=== PATIENT | female | born 1960 | race Caucasian/White ===

== ENCOUNTER 2019-08-10 16:39 | Inpatient (IN) | payer OTHER ==
[~2019-08-10] VITALS: Ht 165.1 cm; Wt 49.3 kg
[2019-08-10 16:40] VITALS: BP 135/87
[2019-08-10 17:31] LABS: URINE BILIRUBIN 1+ (Negative); URINE BLOOD NEGATIVE (Negative); URINE GLUCOSE-RANDOM* NEGATIVE (Negative); URINE KETONES TRACE (Negative); URINE NITRITE-REFLEX NEGATIVE (Negative); URINE PROTEIN (DIPSTICK) TRACE (Negative); URINE SPECIFIC GRAVITY >= 1.030 (1.005-1.035); URINE UROBILINOGEN 0.2 E.U./dl (0.2-1.0)
[2019-08-10 17:32] LABS: URINE LEUKOCYTES-REFLEX 3+ (Negative)
[2019-08-10 17:33] LABS: URINE CLARITY CLOUDY; URINE COLOR AMBER
[2019-08-10 17:35] LABS: SQUAMOUS >10 Many /LPF (0-3); URINE WBC-REFLEX 6-15 Few /HPF (0-5)
[2019-08-10 17:36] LABS: BACTERIA-REFLEX None Seen /HPF (None Seen); CRYSTALS None Seen /LPF (None Seen); URINE RBC 0-2 Rare /HPF (0-2)
[2019-08-10 20:03] VITALS: BP 143/93
[2019-08-11 02:00] VITALS: BP 148/98
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
[2019-08-11 06:19] LABS: HEMOGLOBIN 12.8 gm/dL (12.0-15.0); MCH 39.4 pg (26.0-34.0); MCHC 33.7 g/dL (28.0-37.0); MCV 116.8 fL (80.0-100.0); RBC 3.25 mil/uL (4.20-5.00); RDW 14.2 % (10.5-14.5); WBC 6.5 thou/uL (4.0-11.0)
[2019-08-11 06:26] LABS: CALCIUM 9.6 mg/dL (8.5-10.1); CREATININE 0.6 mg/dL (0.6-1.0); POTASSIUM 3.5 mmol/L (3.5-5.1)
--- NOTE | 2019-08-11 08:51 | NUR ---
BED IN LOW POSITION, 3 BED RAILS UP FOR MOBILITY, BED ALARM SET. BED ALARM SOUNDED @ 0200, STAFF RESPONDED AND PT NOTED TO BE ON THE FLOOR NEXT TO THE BED, KNEELING. VS TAKEN AND ASSESSMENT NOTED TO MOVE ALL EXTREMITIES WITHIN NORMAL LIMITS. PT DENIES TENDERNESS OR PAIN. NO CUTS OR BRUISES NOTED. OLEGARIO PARK ASSESSMENT RN ADVISED OF NON INJURY FALL. FAMILY SARINA ADVISED OF NON INJURY FALL @ 0530. FOLLOW UP VS STABLE.
[2019-08-11 08:54] VITALS: BP 113/76
--- NOTE | 2019-08-11 10:54 | EKG ---
[facility] [address] ELECTROCARDIOGRAM REPORT Name: PANFILO OLSONBETH Room #: [facility] Department ADM IN M.R.#: [id number] Admission: 08/10/19 Attend Phys: Curtis Anderson DO Discharge: Date of : 60 Report #: [id number] THIS REPORT FOR: cc: Jonathan Engel MD, Paul L. MD Lundgren,Kurt Post MD [facility] ~ THIS REPORT FOR: //name// [facility] ED Test Date: 2019-08-10 Test Time: 18:01:59 Pat Name: KOSTAS OLSON [facility] Gender: F Solution Professional: claudia : 1960 Requested By: Erika Zhu Order Number: [id number] MD: Kurt Gongora Measurements Intervals [place] Rate: 75 P: 53 MT: 143 QRS: 64 QRSD: 78 T: 55 QT: 383 QTc: 428 Interpretive Statements Sinus rhythm Normal tracing Compared to ECG 08/27/1998 10:59:00 No significant change was found Electronically Signed On 08-11-2019 10:52:58 CDT by Kurt Gongora [email or web address] <ELECTRONICALLY SIGNED> By: Kurt Gongora MD, [facility] 08/11/19 1052 180 180 Kurt Gongora MD, [facility] /EPI
--- NOTE | 2019-08-11 14:02 | NUR ---
Sitting in day room in wheelchair. Drowsy but awakens to stimuli. Confused speech, no response to orientation questions. No speech/behavior suggestive of SI/HI. Able to eat some of breakfast independently. When laid in bed for assessment she did become resistive and momentarily combative but relaxed when left alone. Breath sounds clear t/o. Reg HR auscultated. Color pale pink with brisk capillary refill and palpable peripheral pulses, extremities cool to touch. Brief dry. Active bowel sounds over soft, flat abdomen. Requires 2 staff to transfer from/to . No mouth sores/lesions visualized. Dr. Wylie here assessing pt, clarified orders. Prednisone dced per order. Jamila Chanel SW completed 96 hr hold paperwork after speaking with daughter since pt did not have a DPOA. 1400 Sitting in dining room without s/o distress.
--- NOTE | 2019-08-11 14:25 | NUR ---
Patient transferred from [facility] due to altered mental state. She does not have a DPOA. SW spoke to her daughter who has been in contact with an assistant county attorney to file for guardianship. Daughter requested 1:1 due to patient falling at previous hospital and requiring 1:1 there. LOKI informed ARPIT Wolf of [facility]'s request. LOKI completed involuntary 96hr hold packet and faxed to Wind Tunnel Technician, Vic Paz and the [address] LOKI attempted to notify patient and read her rights but she was unable to understand. Discussed case with medical team, Dr. Mancini, ISHAAN Diamond, and ARPIT Wolf.
[2019-08-11] MEDS ORDERED: VIVELLE-DOT1 EAC3 TOP (17:01)
[2019-08-11 17:46] LABS: FOLIC ACID 11.1 ng/mL (8.6-58.9)
--- NOTE | 2019-08-12 02:41 | NUR ---
PATIENT ALERT AND ORIENTED TO SELF. UNCOOPERATIVE WITH CARE, REFUSED MEDICATIONS AND TWO PERSON ASSIST WITH RESISTANCE FROM WHEELCHAIR TO RECLINER. PATIENT HAS NOT SLEPT FROM SHIFT CHANGE TO TIME OF NOTE. PERIODS OF BABBLING SPEECH. REMAINS IN DAY ROOM. NO S/S OF PAIN. WILL MONITOR.
[2019-08-12 08:21] VITALS: BP 133/95
--- NOTE | 2019-08-12 09:26 | NUR ---
Assumed care at 0700. At 0705 removed lap marbella and sat down on the floor. No injury/no c/o pain. Extremely confused, not making sense. Pulled off name band and it was replaced. Transferred to a wheelchair. Did not eat much breakfast, given bottle of Ensure for nourishment, sipping it. Would not take pills whole, meds crushed and put in pudding which she declined, will retry meds a little later. Took off yellow socks and nurse replaced socks on her feet. She is oriented only to name.
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
--- NOTE | 2019-08-12 17:43 | NUR ---
FREELANCE DISPLAYER Lobo Powers gave order for now IM Geodon 10 mg given 1714 for combative, out of control behavior. Has not slowed down since IM despite room light darkened, staff not engaging pt. in conversation unless absolute necessary for redirection. Staff is reuired to keep her in bed as she tries to get out or is kicking the bottom siderail.
[2019-08-12 19:50] VITALS: BP 159/104
--- NOTE | 2019-08-12 23:09 | NUR ---
ASSUMED CARE ON 08/12/19 @ 19:30, IN W/C IN DAY ROOM. DAUGHTER SARINA CALLED ON THE PHONE, SPOKE TO NURSE AND TO PATIENT. TOOK MEDS CRUSHED IN ICE CREAM. C/O THE COLD HURTING HER MOUTH. SPEACH IS CONFUSED AND MUFFLED. KICKS AND GRABS AT STAFF WITH CARE. ORIENTED TO SELF ONLY. X2 STAFF ASSISTANCE TO TRANSFER FROM W/C TO BED. BED IN LOW POSITION, 3 BEDRAILS UP, BED ALARM SET. WILL CONTINUE TO MONITOR Q 12 MINUTES FOR PATIENT SAFETY.
--- NOTE | 2019-08-13 06:35 | NUR ---
PROVIDED INCONTINENT CARE AND DRESSED. TRANSFERRED X 2 TO THE W/ AND TAKEN TO THE DAY ROOM. SLEPT 8.8 HOURS OVERNIGHT.
--- NOTE | 2019-08-13 09:30 | NUR ---
Assumed care at 0700. Speech is a mxture of mumbles and more understandable words. She is oriented to person. Pt. c/o right neck under jaw bone extreme pain. She is doing better from the standpoint of eating on her own and compliance with medications. Her rate of speech is slower. Initially she declined to work with PT, giving no reason. Staff is gradually working on getting matted hair untangled.
--- NOTE | 2019-08-13 14:56 | NUR ---
LOKI and Dr. Anderson contacted pt's daughter Lissett who gave hx on pt. She explained that pt has been 8 years and the family does not want him knowing anything about pt. LOKI explained that he is on [facility] documents as "emergency contact." Lissett said that must be old. LOKI explained to Lissett that at this time there is nothing that the hospital can do if pt wants to give out info. Lissett explained that she is currently obtaining guardianship of pt with the help of one of her uncles. LOKI asked her to keep SW update and discussed that DPOA or guardianship is needed for placement if that is the plan. LOKI advised asking for emergency guardianship due to COVID-19 because SW cannot keep pt after she no longer meets criteria for the unit. Lissett said she understood and will work quickly on this case. SW team will continue to follow pt during her stay on this unit.
--- NOTE | 2019-08-13 19:01 | NUR ---
Patient was seen by lurer today whe reported patient did not have much to say. After lunch she has held a towel or another yellow shirt over her head. She is experiencing AH/VH/TH. She is very frightened of the hallucinations. She is delusional of staff thinking some are people she knows and calling them by another name. Writes spoke with daughter on the phone. dtr. will talk with patient any time of day or night. She declined evening 1800 dose of Nystatin.
--- NOTE | 2019-08-14 01:48 | NUR ---
Assumed care on 08/13/19 @ 1900, seated in w/c at a table with lap marbella around waist, wearing yellow T-shirt and yellow socks. Oriented x1 to name only, whispers and mumbles only. Confused speach noted. Noted to be watching movement in the room where none is observed by others, then cowers under a sheet, shirt or behind hands, covering face. Speaks to unseen others, shouting out the names of people who are not present. Refused VS, cooperated with assessment, HRRR, Lungs auscultated to all nogueira, ABD sounds auscultated N x 4 Q. Hits and kicks at staff when straightening her up in the w/c. Refused meds whole, provided crushed in pudding, which she also refused. Nystatin swish and spit provided with green oral spongette, which she accepted and brushed by herself over her mouth tissues and teeth, then spit into a cup. In bed at this writing, curled into a position, eyes closed, respirations even and unlabored. Bed in low position, bed alarm set, will continue to monitor q 12 minutes for patient safety.
[2019-08-14 05:32] VITALS: BP 159/104
[2019-08-14 09:27] LABS: APTT 27.3 Seconds (24.5-32.8); INR 1.1; PROTIME 10.9 Seconds (9.3-11.4)
[2019-08-14 12:00] VITALS: BP 107/60
[2019-08-14 12:03] LABS: CSF CLARITY CLEAR; CSF COLOR COLORLESS
[2019-08-14 12:04] LABS: CSF GLUCOSE 63 mg/dL (40-70); CSF PROTEIN 54 mg/dL (15-45)
--- NOTE | 2019-08-14 12:49 | NUR ---
0745 Lying in recliner. When initially approaching pt she pushes away and holds her face or a wash cloth to her face. Alert and orientated X3. States her goal for the day is to give alot of money to [facility]. Speaks in a quiet voice. Calm when holding her hand and explaining procedures. Kicks and pushes back with stimulation. NPO per verbal order from Dr. Anderson. Took meds with 30 ml of H2O with encouragement. Denies SI/HI. Breath sounds clear t/o. Reg HR auscultated. Color pink with brisk capillary refill and palpable peripheral pulses. No edema. Brief dry. Active bowel sounds over soft, flat abdomen. Dr. Anderson aware of temperature. 1000 To Interventional Radiology for LP per order. Attempted IV X 2 without success. Radiology state they will place IV. 1200 Back from Radiology. No s/o distress. T 99.9. HR 100. Took Nystatin with encouragement.
[2019-08-14 13:00] VITALS: BP 102/70
[2019-08-14 13:04] LABS: CSF RBC 0 /mm3; CSF WBC 1 /mm3 (0-10)
[2019-08-14 14:07] LABS: HEMOGLOBIN 11.4 gm/dL (12.0-15.0); MCH 39.5 pg (26.0-34.0); MCHC 33.5 g/dL (28.0-37.0); MCV 117.7 fL (80.0-100.0); RBC 2.89 mil/uL (4.20-5.00); RDW 14.5 % (10.5-14.5); WBC 9.9 thou/uL (4.0-11.0)
[2019-08-14 14:17] LABS: ALBUMIN 3.3 g/dL (3.4-5.0); CALCIUM 9.4 mg/dL (8.5-10.1); CREATININE 0.7 mg/dL (0.6-1.0); MAGNESIUM 1.6 mg/dL (1.8-2.4); POTASSIUM 3.6 mmol/L (3.5-5.1); TOTAL BILIRUBIN 0.5 mg/dL (<0.1-1.0); TOTAL PROTEIN 6.8 g/dL (6.4-8.2)
[2019-08-14] MEDS ORDERED: HALOPERIDOL 1 MG1 MG PO (14:53)
[2019-08-14] MEDS ORDERED: PANTOPRAZOLE SO40 M1 PO (14:53)
[2019-08-14] MEDS ORDERED: VITAMIN D325 MCG PO (14:54)
[2019-08-14] MEDS ORDERED: SYNTHROID125 MC1 PO (14:54)
[2019-08-14] MEDS ORDERED: PRENATAL PO (14:54)
[2019-08-14] MEDS ORDERED: VITAMIN B-1100 M2 PO (14:54)
[2019-08-14 15:18] LABS: URINE BILIRUBIN NEGATIVE (Negative); URINE BLOOD NEGATIVE (Negative); URINE CLARITY CLEAR; URINE COLOR YELLOW; URINE GLUCOSE-RANDOM* NEGATIVE (Negative); URINE KETONES TRACE (Negative); URINE LEUKOCYTES-REFLEX NEGATIVE (Negative); URINE NITRITE-REFLEX NEGATIVE (Negative); URINE PROTEIN (DIPSTICK) TRACE (Negative); URINE UROBILINOGEN 0.2 E.U./dl (0.2-1.0)
[2019-08-14 16:36] LABS: % SATURATION 24 % (20-39); IRON 51 ug/dL (50-170); TIBC 212 ug/dL (250-450)
[2019-08-16 11:08] LABS: CSF IgG 2.3 mg/dL (0.0-8.6)
[2019-08-16 14:08] LABS: CSF VDRL Non Reactive (Non Rea:<1:1)
--- NOTE | 2019-08-16 23:04 | D ---
[facility] [place] [address] DISCHARGE SUMMARY Name: KOSTAS OLSON Room #: 520B-B [facility] IN M.R.#: [id number] Admission: 08/10/19 Attend Phys: Curtis Anderson DO Discharge: 08/14/19 Date of : 60 Report #: [id number] THIS REPORT FOR: cc: Jonathan Engel MD, Paul L. MD Kerstein, Andrew H. DO ~ THIS REPORT FOR: //name// CC: Curtis Engel DATE OF SERVICE: 08/14/2019 INPATIENT PSYCHIATRIC DISCHARGE SUMMARY ATTENDING PHYSICIAN: Curtis Anderosn DO STAFFING MANAGER AT THE TIME OF DISCHARGE: Arash Matos MD DISCHARGE DIAGNOSES: Delirium secondary to general medical condition, namely combination of alcohol withdrawal, dehydration, tachycardia, possible COVID-19 infection. Could not exclude an underlying neurodegenerative disorder at this point. Additional medical problems are recent urinary tract infection, which was treated, sick euthyroid. DISCHARGE MEDICATIONS: I have recommended the patient be on 2 mg 3 times a day of haloperidol to assist with delirium management. Otherwise, her medications will be per the Hospitalist Service. She is discharged to the [facility] medical floor for COVID-19 rule out, IV fluids, so forth. diet: per hospitalist ACTIVITY: As tolerated. The patient is a fall risk and was not ambulatory at the time of discharge. REASON FOR ADMISSION: Back in the , the patient was in hospital transfer from [facility] for Geriatric Psychiatry evaluation. She had been admitted for "altered mental state" background on 08/02/2019 to [facility]. They did some of the neuro workup including an MRI; however, other than possibility of Wernicke-Korsakoff syndrome and prolonged delirium and coming to no specific conclusion. HOSPITAL COURSE: The patient was admitted to Geriatric Psychiatry Unit. The patient had poor level of function since time of admission. Spoke to her [facility] [address] [place] [address] DISCHARGE SUMMARY Name: KOSTAS OLSON Room #: 520B-B [facility] IN M.R.#: [id number] Admission: 08/10/19 Attend Phys: Curtis Anderson, Discharge: 08/14/19 Date of : 60 Report #: [id number] daughterLissett on the phone. Regarding workup, I made a decision on the morning of 08/14/2019 to have a lumbar puncture undertaken and the patient tolerated this, but when she came back from Interventional Radiology was showing poor urine output, tachycardia, O2 sat 92% and there was concern of the COVID-19 infection being an issue. So, Dr. Matos requested to take her medical. Discharge day progress note was done yesterday. PROGNOSIS: For this patient is guarded and will depend if a reversible cause for her diminished mentation is found essentially. LABORATORY DATA: Laboratories as of the were limited as most to be done at [facility]. INR was 1.1, PT 10.9, APTT 27.3. Urinalysis grossly normal with some trace protein, trace ketones, some leukocytes and some squamous epithelial cells. CSF showed colorless white blood cell count; red blood cell count is 0. Glucose 63, total protein 54. Serum IgG 707. Serum albumin 4.0. I did order a thyroid peroxidase antibodies, it came back high at 338. <ELECTRONICALLY SIGNED> By: Curtis Anderson DO 08/16/19 2304 1626 1703 Curtis Anderson DO /nt
[2019-08-17 10:28] LABS: HSV PCR SOURCE CSF
[2019-08-17 15:08] LABS: HSV 1 DNA Negative (Negative); HSV 2 DNA Negative (Negative)
== END 2019-08-14 15:45 | disposition short-term general hospital (02) | DRG 885 ==
LOC: ER 16:39 → EROBS 17:59 → SBH 17:59
PROVIDERS: Internal Medicine; Physician Assistant; Psychiatry & Neurology Neurology; Radiology Diagnostic Radiology; ADMIT Psychiatry & Neurology Psychiatry
PROC: B01B1ZZ Fluoroscopy of Spinal Cord using Low Osmolar Contrast (ICD-10-PCS; principal; 2019-08-14)
PROC: 009U3ZX Drainage of Spinal Canal, Percutaneous Approach, Diagnostic (ICD-10-PCS; principal; 2019-08-14)
DX: F29 Unspecified psychosis not due to a substance or known physiological condition (principal); N39.0 Urinary tract infection, site not specified; R41.0 Disorientation, unspecified; E86.0 Dehydration; R00.0 Tachycardia, unspecified; Z88.6 Allergy status to analgesic agent; Z88.8 Allergy status to other drugs, medicaments and biological substances; G25.81 Restless legs syndrome
CPT/HCPCS: 10880

== ENCOUNTER 2019-08-14 16:11 | Inpatient (IN) | payer OTHER ==
[~2019-08-14 16:11] MED LIST: HALOPERIDOL 1 MG1 MG PO; PANTOPRAZOLE SO40 M1 PO; PRENATAL PO; SYNTHROID125 MC1 PO; VITAMIN B-1100 M2 PO; VITAMIN D325 MCG PO; VIVELLE-DOT1 EAC3 TOP
[2019-08-14 17:09] VITALS: BP 122/55
[2019-08-14 18:10] LABS: ALBUMIN 3.5 g/dL (3.4-5.0); TOTAL PROTEIN 6.4 g/dL (6.4-8.2)
[2019-08-14 18:50] LABS: TSH 4.681 uIU/mL (0.358-3.740)
[2019-08-14 19:55] VITALS: BP 145/96
[2019-08-15 02:30] VITALS: BP 123/83
[2019-08-15 05:56] LABS: HEMATOCRIT 34.8 % (37.0-47.0); HEMOGLOBIN 11.5 gm/dL (12.0-15.0); MCH 38.5 pg (26.0-34.0); MCHC 32.9 g/dL (28.0-37.0); MCV 117.1 fL (80.0-100.0); RBC 2.97 mil/uL (4.20-5.00); RDW 14.1 % (10.5-14.5); WBC 7.3 thou/uL (4.0-11.0)
[2019-08-15 06:06] LABS: CALCIUM 9.3 mg/dL (8.5-10.1); CREATININE 0.6 mg/dL (0.6-1.0); MAGNESIUM 1.6 mg/dL (1.8-2.4)
[2019-08-15 06:09] LABS: POTASSIUM 2.6 mmol/L (3.5-5.1)
[2019-08-15 08:19] VITALS: BP 145/90
[2019-08-15 16:11] VITALS: BP 112/76
[2019-08-15 19:46] VITALS: BP 121/76
[2019-08-16 04:10] VITALS: BP 155/73
[2019-08-16 05:55] LABS: HEMATOCRIT 34.3 % (37.0-47.0); HEMOGLOBIN 11.3 gm/dL (12.0-15.0); MCH 38.6 pg (26.0-34.0); MCHC 32.9 g/dL (28.0-37.0); MCV 117.4 fL (80.0-100.0); RBC 2.92 mil/uL (4.20-5.00); RDW 14.4 % (10.5-14.5); WBC 8.5 thou/uL (4.0-11.0)
[2019-08-16 06:01] LABS: CALCIUM 9.3 mg/dL (8.5-10.1); CREATININE 0.6 mg/dL (0.6-1.0); MAGNESIUM 1.8 mg/dL (1.8-2.4); POTASSIUM 3.1 mmol/L (3.5-5.1)
[2019-08-16 07:34] VITALS: BP 120/73
[2019-08-16 13:07] VITALS: BP 165/89
[2019-08-16 14:00] VITALS: BP 155/68
[2019-08-16 19:08] VITALS: BP 111/58
[2019-08-17 03:37] VITALS: BP 102/58
[2019-08-17 07:46] VITALS: BP 106/67
[2019-08-17 08:12] LABS: HEMATOCRIT 32.5 % (37.0-47.0); HEMOGLOBIN 10.9 gm/dL (12.0-15.0); MCH 39.3 pg (26.0-34.0); MCHC 33.6 g/dL (28.0-37.0); MCV 117.2 fL (80.0-100.0); RBC 2.77 mil/uL (4.20-5.00); RDW 14.1 % (10.5-14.5); WBC 6.8 thou/uL (4.0-11.0)
[2019-08-17 08:43] LABS: CALCIUM 9.2 mg/dL (8.5-10.1); CREATININE 0.7 mg/dL (0.6-1.0); MAGNESIUM 1.7 mg/dL (1.8-2.4); POTASSIUM 3.5 mmol/L (3.5-5.1)
[2019-08-17 09:24] LABS: URINE BILIRUBIN NEGATIVE (Negative); URINE BLOOD TRACE (Negative); URINE CLARITY CLOUDY; URINE COLOR YELLOW; URINE GLUCOSE-RANDOM* NEGATIVE (Negative); URINE KETONES NEGATIVE (Negative); URINE LEUKOCYTES-REFLEX NEGATIVE (Negative); URINE NITRITE-REFLEX NEGATIVE (Negative); URINE PROTEIN (DIPSTICK) NEGATIVE (Negative); URINE SPECIFIC GRAVITY >= 1.030 (1.005-1.035); URINE UROBILINOGEN 0.2 E.U./dl (0.2-1.0)
[2019-08-17 09:47] LABS: AMORPHOUS URATES Many /LPF (None Seen); BACTERIA-REFLEX 1-9 Few /HPF (None Seen); CASTS None Seen /LPF (None Seen); SQUAMOUS None Seen /LPF (0-3); URINE RBC 0-2 Rare /HPF (0-2); URINE WBC-REFLEX None Seen /HPF (0-5)
--- NOTE | 2019-08-17 13:32 | EEG ---
[facility] [place] [address] ELECTROENCEPHALOGRAM Name: KOSTAS OLSON Room #: 444-P ADM IN M.R.#: [id number] Admission: 08/14/19 Attend Phys: Arash Matos MD Discharge: Date of : 60 Report #: [id number] THIS REPORT FOR: //name// CC: Arash Castillo [place] DATE OF SERVICE: 08/16/2019 This patient's EEG was done to evaluate for altered mental status. The whole EEG is masked by a lot of artifact and virtually uninterpretable. Photic stimulation is unremarkable. The patient became drowsy and during that portion of the EEG, some slowing was noticed on both sides, but background activity appeared to be about 8 Hz and 30 microvolt. IMPRESSION: This patient's EEG is masked by a lot of artifact and is virtually uninterpretable. However, I did not see any active epileptiform activity. It does appear to be intermixed with theta range slowing on both sides. That is a nonspecific finding, which can occur with dementia, encephalopathy, effect of psychotropic medication, etc. Clinical correlation is recommended. <ELECTRONICALLY SIGNED> By: Vamshi Snowden MD 08/17/19 1332 1531 1538 Vamshi Snowden MD /nt
[2019-08-17 16:05] VITALS: BP 147/92
[2019-08-17 19:50] VITALS: BP 112/31
[2019-08-17 21:17] VITALS: BP 112/31
[2019-08-18 06:19] LABS: HEMATOCRIT 32.1 % (37.0-47.0); MCH 39.6 pg (26.0-34.0); MCHC 34.2 g/dL (28.0-37.0); MCV 115.9 fL (80.0-100.0); RBC 2.77 mil/uL (4.20-5.00); RDW 14.1 % (10.5-14.5); WBC 7.9 thou/uL (4.0-11.0)
[2019-08-18 06:31] LABS: CALCIUM 9.1 mg/dL (8.5-10.1); CREATININE 0.6 mg/dL (0.6-1.0); MAGNESIUM 1.8 mg/dL (1.8-2.4)
[2019-08-18 06:41] LABS: PHOSPHORUS 3.5 mg/dL (2.5-4.9)
[2019-08-18 10:09] VITALS: BP 122/85
[2019-08-18 10:14] VITALS: BP 122/85
[2019-08-18 11:35] VITALS: BP 140/93
[2019-08-18 19:36] VITALS: BP 140/90
[2019-08-18 23:23] VITALS: BP 140/90
[2019-08-19 03:44] LABS: HEMATOCRIT 30.6 % (37.0-47.0); HEMOGLOBIN 10.4 gm/dL (12.0-15.0); MCH 39.2 pg (26.0-34.0); MCHC 34.1 g/dL (28.0-37.0); RBC 2.66 mil/uL (4.20-5.00); RDW 14.2 % (10.5-14.5); WBC 10.8 thou/uL (4.0-11.0)
[2019-08-19 03:47] LABS: CREATININE 0.6 mg/dL (0.6-1.0); POTASSIUM 3.6 mmol/L (3.5-5.1)
[2019-08-19 04:17] VITALS: BP 125/80
[2019-08-19 07:40] VITALS: BP 100/70
[2019-08-19 08:00] VITALS: BP 100/70
[2019-08-19 12:00] VITALS: BP 135/86
[2019-08-19 16:00] VITALS: BP 132/76
[2019-08-19 19:47] VITALS: BP 93/55
[2019-08-20 03:40] VITALS: BP 125/90
[2019-08-20 05:18] LABS: CALCIUM 9.4 mg/dL (8.5-10.1); CREATININE 0.6 mg/dL (0.6-1.0); MAGNESIUM 1.9 mg/dL (1.8-2.4); PHOSPHORUS 3.3 mg/dL (2.5-4.9); POTASSIUM 3.9 mmol/L (3.5-5.1)
[2019-08-20 07:08] VITALS: BP 114/69
--- NOTE | 2019-08-20 07:56 | EKG ---
[facility] [place] [address] ELECTROCARDIOGRAM REPORT Name: KOSTAS OLSON Room #: 204-P ADM IN M.R.#: [id number] Admission: 08/14/19 Attend Phys: Arash Matos MD Discharge: Date of : 60 Report #: [id number] THIS REPORT FOR: cc: Jonathan Engel MD, Paul L. MD Lundgren,Kurt Post MD [facility] ~ THIS REPORT FOR: //name// [facility] Test Date: 2019-08-19 Test Time: 11:52:01 Pat Name: KOSTAS OLSON Department: Room: 204 P Gender: F Railroad Crane Operator: : 1960 Requested By: Curtis Anderson Order Number: [id number] MD: Kurt Gongora Measurements Intervals [place] Rate: 95 P: 56 [place]: 134 QRS: 38 QRSD: 77 T: 21 QT: 342 QTc: 430 Interpretive Statements Sinus rhythm Normal tracing Compared to ECG 08/10/2019 18:01:59 No significant change was found Electronically Signed On 08-20-2019 7:55:12 CDT by Kurt Gongora [email or web address] <ELECTRONICALLY SIGNED> By: Kurt Gongora MD, [facility] 08/20/19 0755 1152 1152 Kurt Gongora MD, [facility] /EPI
== END 2019-08-20 14:58 | DRG 640 ==
LOC: 4S 16:11 → 3W 16:11 → 4S 08-15 19:16 → 2N 08-18 11:22
PROVIDERS: Hospitalist; Nurse Practitioner Family; ADMIT Internal Medicine
DX: E51.2 Wernicke's encephalopathy (principal); G93.41 Metabolic encephalopathy; R65.10 Systemic inflammatory response syndrome (SIRS) of non-infectious origin without acute organ dysfunction; E06.3 Autoimmune thyroiditis; F10.10 Alcohol abuse, uncomplicated; E07.81 Sick-euthyroid syndrome; Z88.5 Allergy status to narcotic agent; Z03.818 Encounter for observation for suspected exposure to other biological agents ruled out; Z88.8 Allergy status to other drugs, medicaments and biological substances
CPT/HCPCS: 10081; 10102; 10779; 10879

== ENCOUNTER 2019-08-20 15:19 | Inpatient (IN) | payer OTHER ==
[~2019-08-20] VITALS: Ht 152.4 cm; Wt 49.1 kg
[2019-08-20 16:05] VITALS: BP 104/45
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
[2019-08-20 19:43] VITALS: BP 184/85
[2019-08-20 20:08] VITALS: BP 184/85
[2019-08-20 22:00] VITALS: BP 102/55
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
[2019-08-21 09:00] VITALS: BP 112/70
[2019-08-21 09:45] VITALS: BP 112/70
--- NOTE | 2019-08-21 10:08 | NUR ---
ASSUMED CARE AT 0700 THIS MORNING. PT. UP TO A W/C AND OUT TO THE DINING ROOM. SHE WAS EATING BREAKFAST ON HER OWN. SHE NEEDED SOME ENCOURAGEMENT TO EAT AND TO TAKE HER MEDICATIONS. SHE DID BOTH WITH ONLY A BIT OF ENCOURAGEMENT. NO NEW PROBLEMS NOTED OR VOICED AT THIS TIME. HER SPEECH IS GARBLED AND UNINTELLIGABLE. ONLY A FEW ISOLATED WORDS ARE UNDERSTOOD.
--- NOTE | 2019-08-21 11:07 | NUR ---
LOKI and Dr. Andersno spoke with Micheline's patent attorney Levi Melgar who said they have not filed the guardianship petition, but once done will be asking for a [place] hearing. LOKI emailed Micheline asking if she has been able to identify placement options, and how LOKI can assist. LOKI team will continue to follow pt during her stay on this unit.
--- NOTE | 2019-08-21 11:39 | H ---
[facility] [place] [address] HISTORY AND PHYSICAL Name: KOSTAS OLSON Room #: 519B-B ADM IN M.R.#: [id number] Admission: 08/20/19 Attend Phys: Curtis Anderson DO Discharge: Date of : 60 Report #: [id number] THIS REPORT FOR: cc: Jonathan Engel MD,Curtis Carty MD, DO ~ CC: Curtis Engel DATE OF SERVICE: 08/20/2019 INPATIENT PSYCHIATRIC EVALUATION Of note, this is a readmission to the Geriatric Psychiatry. The patient had been sent down to the medical floors for I think about a week total after she developed systemic inflammatory response syndrome and then Dr. Lux desired her to get an IV steroid course. SOURCES OF INFORMATION: Chart review, the patient is grossly delirious, unable to give reasonable answers to things, so this is heavily chart driven. CHIEF COMPLAINT: Unspecified. 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 The patient had a gross change in mental status. She was initially admitted to [facility] and was treated for alcohol withdrawal. The patient failed to improve and she was sent for Geriatric Psych hospitalization. Initially, we had to do some records gathering and found out that not all of the atypical causes of cognitive change had been done. The patient received an LP on my unit and shortly after that actually the same day about a week ago, she was sent to the medical floor due to the SIRS concern, COVID-19 and so forth. The patient presents back today, really unable to confirm her own name. The patient responds in nonsensical mumbling or comments. She is nonambulatory, wheelchair bound. History from chart review would be as follows: The patient's allergies were to LORAZEPAM, METOPROLOL, MORPHINE, and OMEPRAZOLE. MEDICATIONS: Her medications on the medical floor included Solu-Medrol as well as IM thiamine. PAST MEDICAL AND PSYCHIATRIC HISTORY: Includes alcoholism and UTI, which was treated with levofloxacin. She has a macrocytosis and is anemic. SOCIAL HISTORY: Two-year history of heavy alcohol use, 1-2 bottles at night of alcohol. She is an transactional attorney, has a law degree. She does have 2 estranged children. She is . [facility] [address] [place] [address] HISTORY AND PHYSICAL Name: KOSTAS OLSON Room #: 519B-B [facility] IN ..#: [id number] Admission: 08/20/19 Attend Phys: Curtis Anderson DO Discharge: Date of : 60 Report #: [id number] LABORATORY DATA: Most recent laboratories from Dr. Adames's service, H and H 10.4 and 30.6, MCV 115, white blood cell count 10.8, platelets 341. Coagulation on August 13, PT 10.9, INR 1.1, APTT 27.3. Chemistries from the include sodium 141, potassium 3.9, chloride 105, bicarbonate 24, anion gap 12, BUN 10, creatinine 0.6, estimated GFR 103, glucose 77, calcium 9.4, phosphorus 3.3, magnesium 1.9. Iron 51, TIBC 212, percent saturation 24, total bilirubin 0.5, GGT high at 65, AST 75, ALT 43, alkaline phosphatase 58, total protein 6.4, albumin 3.5, prealbumin 14.7, which is low. Thiamine is slightly elevated to 6.5, likely due to supplementation, B12 of 982. Methylmalonic acid normal at 105. Vitamin D of 14.4, which is low, the patient is being replaced; folate normal at 10.5. Procalcitonin less than 0.05. TSH 4.681, free T4 1.7. Homocysteine level 8.9, which is normal. Additionally, urine culture done on August 09 was negative. Blood culture done on August 16 was negative at 5 days. Most recent EKG is as follows: This was from 08/19/2019, QTC 430, QT 342, SC interval 134, normal rate 95, sinus rhythm. EEG performed on August 15 showed a lot of artifact, no epileptiform activity, intermixed with theta range and slowing on both sides as nonspecific kinetic encephalopathy, dementia. PHYSICAL EXAMINATION: VITAL SIGNS: The initial set with temperature 36.9, pulse 118, respirations 14, BP 104/45. GENERAL: Nonambulatory, seen in wheelchair. MENTAL STATUS EXAMINATION: This is a well-developed, ill-appearing, unkempt female appearing older than stated age. Attention grossly impaired. Concentration grossly impaired. Speech nonsensical. Thought process nonlinear ____. Thought content, unable to discern any reasonable thing. No psychomotor agitation, no psychomotor retardation. Unable to assess for auditory, visual, or tactile hallucinations. The patient has not engaged in self-harm activity. Memory, unable to be assessed. Insight impaired. Judgment impaired. Fund of knowledge absolutely below average and premorbid levels. FORMULATION: A 58-year-old female readmitted to Geriatric Psychiatry for concern of Wernicke-Korsakoff syndrome, now manifesting as an alcohol-related dementia. DIAGNOSIS: At this time, major neurocognitive disorder due to multiple etiologies with behavioral disturbance. No improvement since being on the Medical Unit. PLAN: Evaluate, stabilize, obtain collateral. We will fill out guardianship paperwork. Continue meds as follows: Cholecalciferol 5000 International Units daily, pantoprazole 40 mg p.o. daily, levothyroxine 125 mcg p.o. daily, thiamine 100 mg p.o. 3 times a day, vitamin at bedtime, haloperidol 3 mg at 9:00, 3:00, and 9:00 p.m., p.r.n. such as Zofran ordered as well as normal house p.r.n.'s on Geriatric Psychiatry Unit. I will be in touch with her daughter, [facility] [address] [place] [address] HISTORY AND PHYSICAL Name: WHITNEYKOSTAS Room #: 519B-B ADM IN .R.#: [id number] Admission: 08/20/19 Attend Phys: Curtis Anderson DO Discharge: Date of : 60 Report #: [id number] [place] tomorrow. STRENGTHS: She is insured, has family support from her daughter and one other child. WEAKNESSES: Severe fulminant cognitive impairment, likely secondary to alcohol use. The patient also does not have a second decision maker. Time spent on interview, review of records, and coordination of care approximately 45 minutes. <ELECTRONICALLY SIGNED> By: Curtis Anderson DO 08/21/19 [id number] Curtis Anderson DO /nt
--- NOTE | 2019-08-21 14:10 | NUR ---
ASSUMED CARE AT 0700 TODAY. PT. UP, DRESSED IN HOSPITAL PANTS, YELLOW SHIRT AND SOX. SHE IS VERY UNKEMPT. Peter BYRD. ATTEMPTED TO COMB THE TANGLED HAIR TODAY. PT. COOPERATIVE WITH THIS. SHE TOOK HER MEDICATIONS THIS MORNING WITHOUT DIFFICULTIES.
[2019-08-21 19:39] VITALS: BP 107/85
--- NOTE | 2019-08-22 04:47 | NUR ---
Assumed care of pt @ 1900. Pt calm et cooperative this shift. Took medications crushed in applesauce. Ambulates via self-propel in w/c. Socialized in dayroom until HS. Pt unable to communicate appropriately with peers so tends to stay to self in dayroom. VSWNL. Health assessment with no abnormalities other than previously noted. Ynable to assess SI/HI due to pt's tendency towards word salad, but pt does not demonstrate any signs of acute distress at present time. Currently resting in bed with eyes closed. Will continue to monitor per protocol.
[2019-08-22 07:26] VITALS: BP 115/76
[2019-08-22 11:15] VITALS: BP 115/76
--- NOTE | 2019-08-22 11:24 | NUR ---
ASSUMED CARE AT 0700 THIS MORNING. PT. AWAKE, UP IN W/C, DRESSED AND ON THE UNIT. SHE IS TALKING A BIT BETTER WITH STAFF TODAY. PT. IS A BIT MORE ALERT TODAY. SHE CONTINUES TO NEED ASSISTANCE FEEDING AND FOR PERSONAL CARE. SHE TOOK HER MEDICATIONS WITHOUT PROBLEMS NOTED.
--- NOTE | 2019-08-22 14:22 | NUR ---
LOKI contacted Micheline and scheduled a video chat between her and pt for 1500 on 08/22. SW team will continue to follow pt during his stay on this unit.
[2019-08-22 19:27] VITALS: BP 138/71
--- NOTE | 2019-08-22 23:29 | NUR ---
Care assumed at 1900. Cooperative taking meds at . c/o being cold with 2 blankets on. No c/o pain or medical issues. Not observed hallucinating. Speech almost totally clear. NO SI/HI/AH/VH.
[2019-08-23 07:28] VITALS: BP 98/72
--- NOTE | 2019-08-23 12:45 | NUR ---
Sitting on couch in day room without s/o distress. Alert and orientated to person only. States she is at [facility]. Able to make clear requests to go to the bathroom but speech is confused at other times. Stands and transfers self with minimal assistance to couch and commode. Calm and watching TV/participating in groups. Eating independently. Breath sounds clear t/o, bilaterally equal. Reg HR auscultated. Color pink with brisk capillary refill and palpable peripheral pulses. No edema noted. Voided large amt yellow urine per commode. Active bowel sounds over soft, flat abdomen. Large, fading bruises on R forearm. Able to take a few steps with assistance, unsteady gait.
--- NOTE | 2019-08-23 15:32 | NUR ---
LOKI spoke with Micheline who asked that the video chat be moved to tomorrow due to her still moving. LOKI scheduled the meeting for 08/23 @ 11am. Micheline asked for a listing of NH facilites. LOKI emailed her a listing from Medicare.gov. LOKI team will continue to follow pt during her stay on this unit.
[2019-08-23 19:27] VITALS: BP 130/85
--- NOTE | 2019-08-24 05:31 | NUR ---
Assumed care of pt @ 1900. Pt calm et cooperative most of shift with some combativeness and agitation later into the evening. Pt took medications whole without difficulty. Socialized in dayroom with peers during early part of shift. Ambulated via w/c this shift. VSWNL. health assessment with no abnormalities other than previously noted. Denies SI/HI @ present time. Currently resting in recliner in dayroom with eyes open. Will continue to monitor per protocol.
[2019-08-24 08:00] VITALS: BP 143/87
--- NOTE | 2019-08-24 10:13 | NUR ---
PATIENT CARE ASSUMED AT 0700 AM WHEN ARRIVING ON UNIT. PATIENT ALREADY UP IN DINING BLANCA. APPROACHED AND ASKED HOW NIGHT HAD GONE. PATIENT RESPONDED BUT DIFFICULT TO UNDERSTAND WHAT SHE WAS TRYING EXPRESS. UNDERSTOOD WHAT WAS CONVEYED TO HER THOUGH. CONFUSION EVIDENT BUT SOMETIMES SHE IS CAN SPEAK CLEARLY AND OTHER TIMES MUMBLES. TOOK MEDICATIONS AND LIKES TO TAKE PILLS INDEPENDENTLY WITH JUICE. ATE POORLY - FRUSTRATED AT TIMES TRYING TO MAKE NEEDS KNOWN. PATIENT IN NO PAIN.
--- NOTE | 2019-08-24 11:28 | NUR ---
SW created a [email or web address] account and set pt up to video chat with her daughter Micheline. Pt has a 1-1 to assist her in operating the i-pad. SW team will continue to follow pt during his stay on this unit.
[2019-08-24 19:40] VITALS: BP 143/87
--- NOTE | 2019-08-25 05:22 | NUR ---
-05-14 care transfered at 1915; 194 pt sitting in recliner in day room, Pt presents confusion and anxiety, PT AAOx1, skin w/d, noted bi-lat tremors UE; Pt denies pain and SI/HI. Pt had zero difficults swallowing medication. Pt was assisted to bed by INCOME TAX MANAGER and noted pt became restless and was brought back to day room. Noted pt picking at things when asked pt became confused and continued picking. Zero acute distress noted.
[2019-08-25 07:05] VITALS: BP 143/93
--- NOTE | 2019-08-25 16:22 | NUR ---
Up in recliner most of day. Alert and orientated to self only. Clear, rambling, confused speech at times, other times verbalizations make sense. Denies SI/HI. Was able to ambulate to room and back with 1 staff assistance. Gait unsteady. Breath sounds clear t/o. Reg HR auscultated. Color pink with brisk capillary refill and palpable peripheral pulses. No edema in extremities. Active bowel sounds over soft, flat abdomen. Compliant with meds, takes whole with liquid. Showered and hair washed. Fading bruises to arms. Sitting in recliner playing with hair at present. No s/o distress.
--- NOTE | 2019-08-25 17:04 | NUR ---
SW attempted 1:1 with patient in lieu of group due to COVID-19 restrictions. Patient was sleeping.
[2019-08-25 19:41] VITALS: BP 105/71
--- NOTE | 2019-08-26 05:26 | NUR ---
Assumed care of patient @ 1900. Pt calm et cooperative this shift. Pt spent much of shift resting in recliner with eyes closed. Took medications whole without difficulty. VSWNL. Health assessment with no abnormalities at present time. Unable to assess SI/HI at present time due to patient's inability to communicate clearly today. Pt does not seem to be in any acute distress at present time. Currently resting in bed with eyes closed. Will continue to monitor per protocol.
[2019-08-26 07:31] VITALS: BP 111/78
--- NOTE | 2019-08-26 09:05 | NUR ---
Weekly Progress Note Date of Admission: 08/20/2019 Date of Activity Therapy Assessment:08/23/2019 Activity Goal: Reality Orientation and Impulse Control Initial Goal: 1:1, engagement in the milieu Weekly progress towards goal: Did not achieve Group participation level: NA due to COVID 19 Behaviors observed: Pt was able to sit appropraitely through a small group session. Pt really enjoys music (seen singing and smiling). Some flight of ideas but appropriate social interactions with peers and staff. On Tuesday pt was oriented to time and place. Plan: No change towards goal
--- NOTE | 2019-08-26 09:32 | NUR ---
PATIENT CARE ASSUMED AT 0700 AM - PATIENT UP AT THIS TIME SITTING IN KENDRA CHAIR IN DINING BLANCA. PATIENT ALERT AND GREETED STAFF WHEN APPROACHED. RESPONSIVE TO QUESTIONS BUT UNABLE TO FOCUS. THOUGHT PATTERN JUMBLED - NEEDS MONITORING WITH MEALS - NOT FOCUSED - MEDICATION COMPLIANT. TAKES PILLS WHOLE ONE AT A TIME. CURRENTLY RESTING IN KENDRA CHAIR IN DINING AREA WITH LAP ALPA ON.
--- NOTE | 2019-08-26 16:29 | NUR ---
SW met with patient 1:1 in lieu of group due to COVID-19 restrictions. Patient was pleasant and smiled during our interaction. She states she is happy to be feeling better. She is looking forward to being well enough to get discharged.
[2019-08-26 19:53] VITALS: BP 125/73
--- NOTE | 2019-08-27 00:10 | NUR ---
Care assumed of patient at 1915: Patient seated in recliner in dayroom at start of shift. Smiling, pleasant and cooperative. Patient alert and oriented to person only. Confused and forgetful. Patient fidgeting with linens on her lap. Patient ate 100% snack. Took HS medication whole without difficulty. Required simple, one step directions. Patient easily forgets task at hand. Patient denies pain or discomfort. Denies SI/HI/AH/VH. No s/s of delusional or paranoia behaviors. Patient ambulated from recliner to her room with staff assist x2 due to weakness. Required mod assist. Once patient was in her room, she was continent of bladder in bathroom. Brushed her teeth and washed her face, all with standby assist. Patient did have trouble with item recognition. Patient was putting her hair comb on her toothbrush thinking it was toothpaste. When re-directed, patient laughed and stated "I knew that". Patient still having some disorganized speech, tangential, speaking to herself. Patient then asked to go to bed. Patient ambulated from bathroom to bed with min assist x1. Patient was able to fall asleep without difficulty and has been resting quietly since.
[2019-08-27 07:29] VITALS: BP 106/75
--- NOTE | 2019-08-27 09:50 | NUR ---
PATIENT CARE ASSUMED AT 0700 AM - PATIENT ALERT AND ORIENTED - MAKES NEEDS KNOWN. REMAINS DILUSTIONAL AT TIMES - ACCUSING PEER OF INAPPROPRIATE BEHAVIOR. PATIENT NEEDED ENCOURAGEMENT TO STAY OUT IN DINING AREA FOR GROUPS. PATIENT WANTED TO RETIRE TO BED. MEDICATION COMPLIANT. SPOKE OF HER DAUGHTER.
--- NOTE | 2019-08-27 12:04 | NUR ---
LOKI sent an email to Micheline asking if she has identified any places she would like referrals sent to for pt. LOKI team will continue to follow pt during her stay on this unit.
[2019-08-27 19:31] VITALS: BP 113/76
[2019-08-27 20:30] VITALS: BP 113/76
[2019-08-27 21:30] VITALS: BP 113/76
--- NOTE | 2019-08-28 00:51 | NUR ---
PATIENT HAS BEEN UP WALKING AROUND THE UNIT AND INTERACTING WITH OTHER PATIENTS. SHE IS A/0 TO HERSELF. SHE HAS BEEN CARRYING BLANKET AND A PAPER SACK WITH HER PILLOW IN IT. SHE WAS UPSET WHEN ANOTHER RESIDENT MALE TOOK IT BUT SHE WAS EASILY REDIRECTED UNTIL WE WERE ABLE TO RETRIEVE IT AGAIN FOR HER. SHE WAS TRYING TO REARRANGE THE TABLES IN THE DINING ROOM TONIGHT BUT STOPPED WHEN INSTRUCTED TOO. SHE TOOK HER MEDS WHOLE WITH WATER AND SHE DID EAT ICECREAM FOR AN HS SNACK.PATIENT WAS ASSISTED TO BED AROUND 2100. SHE HAS BEEN UP TO THE BATHROOM TO VOID X 2 THIS EVENING. SHE HAS BEEN CALM AND COOPERATIVE. SHE DENIES SI/HI/AVH. BED IN LOW POSITION AND ROUTINE ROUNDS FOR PATIENT SAFETY AND STATUS. PT DENIES PAIN. PHYSICAL ASSESSMENT WNL. VSS.
[2019-08-28 07:30] VITALS: BP 85/63
[2019-08-28 08:50] VITALS: BP 104/63
--- NOTE | 2019-08-28 09:14 | NUR ---
0700 ASSUMED CARE OF PATIENT, PATIENT SITTING IN DAYROOM AT THAT TIME. PATIENT EATING BREAKFAST WELL, NO C/O PAIN. DENIES SOB,CHEST PAIN,AND DIZZINESS. BP AT 0730 88/[address] LOPEZ NOTIFIED. BP RECHECKED AT 0900 BP-104/63 P- 116. WILL CONTINUE TO OBSERVE.
--- NOTE | 2019-08-28 10:43 | NUR ---
LOKI received referral denials from [facility], [facility], and [facility]. LOKI spoke with the liason with [facility] and sent another referral to [facility]. LOKI suggested to Micheline of contacting the facilities that she is interested in and discussing her mom before LOKI sends referral so that they are not denying pt solely on her initial documentation. Micheline said that her grandmother has lived with [facility] in the past, and she is going to reach out to BD of OP to discuss her mother's case. SW team will continue to follow pt during her stay on this unit.
--- NOTE | 2019-08-28 10:46 | NUR ---
LOKI received a call from Marleny Johns with [facility] stating that she was the CSS of pt, but has not taken on a new role. However, her janitorial supervisor Yusuf Gauthier is well versed in pt and gave her number [phone]. LOKI contacted Yusuf and left a msg. LOKI received a call from Michael, pt's emergency contact. He said he is her landlord and wishes that she would not use him as a EC because he doesn't care. LOKI responded that the hospital will not call him again. SW team will continue to follow pts during her stay on this unit.
[2019-08-28 20:02] VITALS: BP 96/75
--- NOTE | 2019-08-29 05:32 | NUR ---
Assumed care of pt @ 1900. Pt calm et cooperative this shift. Took medications whole without difficulty. Ambulates the halls ad twan with somewhat steady gait. Socialized in dayroom with peers until HS. VSWNL. Health assessment with no abnormalities noted at this time. Currently resting in bed with eyes closed. Will continue to monitor per protocol.
[2019-08-29 07:26] VITALS: BP 105/77
--- NOTE | 2019-08-29 09:07 | NUR ---
0700 ASSUMED CARE OF PATIENT, PATIENT IN ROOM AT THAT TIME. 0715 PATIENT TO DAYROOM SITTING QUIETLY. MEDICATION TAKEN WHOLE WITHOUT DIFFICULTY. DENIES OTHER NEEDS AT THIS TIME.
--- NOTE | 2019-08-29 11:51 | NUR ---
LOKI sent an email to Jt Melgar, estate planning attorney for Micheline Melendez in pt's guardianship hearing, requesting an update on pt's guardianship hearing date. SW team will continue to follow pt during her stay on this unit.
[2019-08-29 19:13] VITALS: BP 110/78
[2019-08-29 20:10] VITALS: BP 110/78
--- NOTE | 2019-08-29 23:39 | NUR ---
PATIENT WAS IN HER ROOM WITH THE DOOR CLOSED WHEN I CAME ON SHIFT AT 1900. WHEN I WENT IN SHE WAS SITTING UP IN BED. I ASKED IF SHE WAS FEELING OKAY. SHE STATES THAT SHE WAS BEING BOTHERED BY SOME OF THE PATIENTS EARLIER IN THE DAY AND SOME WERE ANNOYING HER AND SHE WANTED AWAY FROM EVERYONE SO SHE WENT TO HER ROOM. SHE DID HAVE AN HS SNACK IN HER ROOM TONIGHT THIS NURSE WAS WITH HER AND TALKING AND ASSESSING HER. SHE DENIES PAIN. PHYSICAL ASSESSMENT WNL. PATIENT STATES SHE IS JUST WANTING TO GO HOME. SHE TOOK HER MEDS WITH WATER AND WITHOUT INCIDENT. SHE DID ASK WHAT THE MEDS WERE AND WHAT THEY ARE FOR. PATIENT MORE LUCID AND THOUGHTS BECOMING MORE ORGANIZED. SHE DOES RAMBLE ON ABOUT HER CHECKING ACCOUNTS AND MONEY NEEDING TO BE MOVED BACK AND FORTH. PT IS SLEEPING AT THIS TIME. SHE HAS BEEN CALM,WITHDRAWN BUT COOPERATIVE WITH CARES. WILL CONTINUE TO MONITOR FOR STATUS AND SAFETY ASSEMENT.
--- NOTE | 2019-08-30 10:24 | NUR ---
LOKI contacted Saray with [facility] about pt's discharge; they arranged d/c for 09/04/19. If pt has a good weekend she will be good to go at that time. LOKI contacted Micheline and provided an update on pt's discharge. Micheline asked to do another video chat with pt. LOKI arranged video chat for 08/30 @1500. LOKI team will continue to follow pt during her stay on this unit.
--- NOTE | 2019-08-30 17:26 | NUR ---
HAS BEEN VISIBLE IN DAYROOM AT MEALS AND DURING 1;1 INTERACTIONS OR SMALL GROUPS WITH RT-TALKATIVE AND PLEASANT WITH NOTED FULL RANGE AFFECT DURING 1'1 INTERACTION WITH THIS RN. "I GOT STUCK HERE WITH THESE PEOPLE AND THEY ARE DRIVING ME CRAZY-I LOOK UP AND THEY ARE OUTSIDE MY DOOR" CONVERSATION RAMBLING AND CIRCUMSTANTIAL AT TIMES. NO NOTED OR REPORTED PSYCHOSIS/A/V HALLUCINAIONS. DENIES SI/SH/HI. STATES SEVERAL TIMES "I AM LEAVING HERE TODAY OR TOMORROW"GAIT STEADY WITHOUT ASSISITVE DEVICES.
[2019-08-30 19:39] VITALS: BP 120/67
--- NOTE | 2019-08-31 05:41 | NUR ---
Assumed care of pt @ 1900. Pt calm et cooperative this shift. Took medications whole without difficulty. Isolated in room most of shift. Did not ambulate this shift so could not assess. VSWNL. Health assessment with no abnormalities noted at present time. Denies SI/HI. Currently resting in bed with eyes closed. Will continue to monitor per protocol.
[2019-08-31 08:28] VITALS: BP 126/83
--- NOTE | 2019-08-31 13:18 | NUR ---
HAS BEEN OUT IN DAYROOM AT MEALS AND DOES COME OUT WITH PROMPTING FROM NURSING STAFF-OTHERWISE HAS BEEN WITHDRAWN TO ROOM STATING "THESE PEOPLE ARE STARTING TO DRIVE ME A LITTLE BATTY" FULL RANGE AFFECT-ORIENTED TO PERSON/PLACE-NO TO DATE. CONVERSATION AT TIMES RAMBLING/CIRCUMSTANTIAL. DENIES SI/SH. NO NOTED OR REPORTED PSYCHOSIS. GAIT STEAY WITHOUT ASSISTVE DEVICES. DENIES C/O PAIN/DISCOMFORT. BS ACTIVE X 4 STATES MY ONLY COMPLAINT IS THAT I AM STILL HERE
--- NOTE | 2019-08-31 15:42 | NUR ---
Pt had a video chat wix doxy with Micheline, daughter. SW sat in on the video chat.
[2019-08-31 19:45] VITALS: BP 112/66
--- NOTE | 2019-08-31 21:04 | NUR ---
Pt. is alert and oriented x 3. She is vague when it comes to her situation. She acknowledged that she is going to a facility and named that facility correctly but she thought that she was going there for 1 day. She was already in bed when this nurse assumed care at change of shift. She took medications whole with water. No coughing or choking noted after swallowing. She denies any pain or any distress of any kind. She is resting quietly in bed with respirations even and non-labored. She awakens easily and appears to be sleepy.
[2019-08-31 22:44] VITALS: BP 112/66
--- NOTE | 2019-09-01 06:30 | NUR ---
Pt. slept well throughout shift and was awake at approximately 0600. Pt. took AM meds whole with water. Pt. has no complaints. No signs or symptoms of pain or distress noted. Pt. stated that she wanted to wash hair today.
[2019-09-01 07:40] VITALS: BP 107/72
--- NOTE | 2019-09-01 11:30 | NUR ---
Assumed care at 0700. Patient is friendly, engaged with good eye contact. She is alert, oriented to self, Month, year, place. She does not comprehend that plans are for her to stay at [facility] for at least 6 months then for a reevaluation of her status per report this AM. She has been compliant with medications and eating. She voices no concerns.
--- NOTE | 2019-09-01 16:58 | NUR ---
Remained quiet, watching TV periodically. She does not initiate conversation with peers. No tremors, denies hallucinations. Her mood is good, pleasant, with occasional smiling. She does not realize her stay at [facility] will be longer than a couple of days.
[2019-09-01 19:37] VITALS: BP 122/67
--- NOTE | 2019-09-01 20:00 | NUR ---
Assumed care of patient at change of shift. Pt. is in her room lying in bed. She is oriented x 3. She is unsure of her discharge plans. She acknowledges that her daughter is her DPOA and that she is going to [facility] post discharge. She states that she is only going for 1 day. Education done with patient regarding discharge planning. She acknowledges conversation. She denies pain or distress and no signs or symptoms of pain or distress is noted.
--- NOTE | 2019-09-01 21:09 | NUR ---
Pt. took po meds whole with water. No coughing or choking noted after swallowing. Pt. denies any needs and states that she is ready for bed. She is currently laying in bed on her side with covers over her. Respirations even and non-labored. No signs or symptoms of pain or distress noted.
[2019-09-01 22:38] VITALS: BP 122/67
[2019-09-02 03:30] VITALS: BP 122/67
--- NOTE | 2019-09-02 06:44 | NUR ---
Pt. took am meds whole with water. No swallowing difficulties noted. Pt. currently is remaining in bed despite encouragement to get up and come to dining room. Pt. offers no complaints and no signs or symptoms of pain or distress noted.
[2019-09-02 07:31] VITALS: BP 100/76
--- NOTE | 2019-09-02 12:22 | NUR ---
Assumed care at 0700. Pt. has been quiet, compliant. She rested in bed for awhile, talked on the phone. She offers no complaints. No jitteriness. She is oriented to self, date, situation that she is in hospital. She does not realize that her placement is for longer than a few days.
--- NOTE | 2019-09-02 17:06 | NUR ---
Patient has rested in bed, cat napping. VS at 1600= T=99.1, p=110, r=16, im=575/75, 98% O2 sat. She feels 85% recovered and she is seeking the goal of 95%. Pt. still has the perception she will be in [place] [facility] [place] only a couple of days. She is requesting a laxative-has not had a BM today.
[2019-09-02 18:40] VITALS: BP 114/75
[2019-09-02 19:17] VITALS: BP 130/80
--- NOTE | 2019-09-02 22:11 | NUR ---
Assumed care of patient at end of shift. She is in bed laying on her side covered with a sheet and blanket. She stirs easily and took medications whole with water. No coughing or choking noted after swallowing. Pt. has flat and withdrawn affect. She is cooperative with medications and physical assessment. Pt. sat up in bed and took medications with water. No coughing or choking noted after swallowing. She denies pain or any distress. She is alert and oriented to person, place, and time. She does not fully understand discharge plans, etc. She is withdrawn and apathetic during assessment. She has no complaints and denies pain. No signs or symptoms of distress noted.
--- NOTE | 2019-09-03 06:18 | NUR ---
Pt. slept well through night. This am she is up ambulating in hallways and now has a seat in day room on couch. She is watching TV and awaiting coffee. Her interactions with her peers is minimal. She denies complaints and no signs or symptoms of pain or distress noted.
[2019-09-03 07:17] VITALS: BP 103/73
--- NOTE | 2019-09-03 12:48 | NUR ---
LOKI faxed updates to Saray with [facility]. [facility] also confirmed discharge for 09/03 @10am; [facility] will provide transportation. [facility] team will continue to follow pt during her stay on this unit.
[2019-09-03 12:50] VITALS: BP 103/73
--- NOTE | 2019-09-03 12:57 | NUR ---
ASSUMED CARE AT 0700 THIS MORNING. PT. UP, DRESSED AND ON THE UNIT. SHE ATE BREAKFAST. SHE TOOK HER MEDICATIONS WITHOUT DIFFICULTIES. NO NEW PROBLEMS NOTED OR VOICED. IS PLEASANT AND COOPERATIVE WITH STAFF AND PEERS.
[2019-09-03 13:44] LABS: HEMATOCRIT 32.7 % (37.0-47.0); MCH 38.3 pg (26.0-34.0); MCHC 33.8 g/dL (28.0-37.0); MCV 113.4 fL (80.0-100.0); RBC 2.88 mil/uL (4.20-5.00); RDW 13.7 % (10.5-14.5); WBC 6.7 thou/uL (4.0-11.0)
[2019-09-03 13:56] LABS: CALCIUM 9.2 mg/dL (8.5-10.1); CREATININE 0.5 mg/dL (0.6-1.0); POTASSIUM 4.1 mmol/L (3.5-5.1)
[2019-09-03 19:44] VITALS: BP 123/77
--- NOTE | 2019-09-04 01:13 | NUR ---
PT HAS STAYED IN HER ROOM TONIGHT RESTING. SHE DENIES PAIN. SHE IS EAGER TO D/C 09/04/19. PATIENT HAD BM TODAY. SHE IS A/0X3. ASSESSMENT WNL. DENIES SI/HI/AVH. PATIENT REFUSED HS SNACK BUT DID TAKE HER HS PILLS WITHOUT ISSUE. CONTINUING TO MONITOR. PATIENT BED IN LOW POSITION AND ROUTINE ROUNDING TO CHECK STATUS AND SAFETY OF PATIENT.
--- NOTE | 2019-09-04 01:35 | NUR ---
PATIENT JUST AWOKENED AND STATES SHE CAN'T SLEEP. SHE WENT OUT TO SIT ON COUCH IN DINING ROOM AND IS NOW HEADING BACK TO HER ROOM AGAIN. CONTINUING TO MONITOR.
[2019-09-04 08:29] VITALS: BP 97/79
[2019-09-04] MEDS ORDERED: TRAZODONE HCL50 MG PO (09:26)
[2019-09-04] MEDS ORDERED: HALOPERIDOL 5 MG5 MG PO (09:26)
[2019-09-04] MEDS ORDERED: PANTOPRAZOLE SO40 M1 PO (09:27)
[2019-09-04] MEDS ORDERED: SYNTHROID125 MC1 PO (09:27)
[2019-09-04] MEDS ORDERED: VITAMIN D325 MCG PO (09:28)
[2019-09-04] MEDS ORDERED: VITAMIN B-1100 M2 PO (09:28)
--- NOTE | 2019-09-04 09:55 | NUR ---
Sitting in day room without s/o distress. Alert and orientated to person, place and situation but not to time. Denies SI/HI. Calm and compliant. Breath sounds clear t/o, bilaterally equal. Reg HR auscultated. Color pink with brisk capillary refill and palpable peripheral pulses. No edema noted. Independent with voiding. Active bowel sounds over soft, flat abdomen. Ambulates with regular, steady gait. States she is looking forward to discharge.
--- NOTE | 2019-09-04 22:50 | D ---
[facility] [place] [address] DISCHARGE SUMMARY Name: KOSTAS OLSON Room #: 519B-B DIS IN M.R.#: [id number] Admission: 08/20/19 Attend Phys: Curtis Anderson DO Discharge: 09/04/19 Date of : 60 Report #: [id number] THIS REPORT FOR: cc: Jonathan Engel MD, Paul L. MD Kerstein, Andrew H. DO ~ THIS REPORT FOR: //name// CC: Curtis Engel DATE OF SERVICE: 09/04/2019 INPATIENT PSYCHIATRIC DISCHARGE SUMMARY ATTENDING PHYSICIAN: Curtis Anderson DO. FL[employer]PPLIES SALESPERSON AT THE TIME OF DISCHARGE: Dr. Garibay. DISCHARGE DIAGNOSES: Major neurocognitive disorder, likely due to complications of alcoholism including Wernicke-Korsakoff syndrome with behavioral disturbance, improved; persistent alcohol-induced psychosis, improved; alcohol dependence. OTHER MEDICAL COMORBIDITIES: Include hypothyroidism; vitamin D deficiency; hypertension, resolved; recurrent UTIs. DISCHARGE PLAN: The patient is discharging to [facility] and medical care will be receiving facility for the most part. INTERVAL NOTE: The patient is on a regular diet. No alcohol, no illicit drugs. Ensure Enlive Taloga can be given twice a day for supplementation as recommended by dietitian. DISCHARGE MEDICATIONS: Are as follows: Trazodone 50 mg p.o. at bedtime p.r.n. for insomnia; Haldol 7.5 mg at 9:00 a.m. and 9:00 p.m. for the persistent psychosis; pantoprazole 40 mg p.o. daily at 0700; levothyroxine 125 mcg oral daily for hypothyroidism; we are giving thiamine 100 mg p.o. at 9:00 a.m., 3:00 p.m. and 9:00 p.m.; cholecalciferol 5000 International Units p.o. daily for supplementation; vitamin 1 tab p.o. daily. REASON FOR ADMISSION: The patient had been sent down to the medical floor for SIRS concern COVID-19 and this was a complicated case. She initially had been evaluated and treated at [facility] and was sent to us for Geriatric Psychiatry hospitalization. Those were covered in my previous discharge summary when she went medical. [address] [address] DISCHARGE SUMMARY Name: WHITNEYKOSTAS Room #: 519B-B DIS IN .R.#: [id number] Admission: 08/20/19 Attend Phys: Curtis Anderson DO Discharge: 09/04/19 Date of : 60 Report #: [id number] HOSPITAL COURSE: Upon returning, she had slow, but steady improvement from being grossly disorganized to being able to hold almost paragraph length conversations. Today, specialized lumbar puncture we had done has revealed no evidence of autoimmune encephalitis, paraneoplastic disease. Her 14-3-3 ____ assays came back grossly negative. So, there is no evidence of prion disease. Again, the anti-NMDA receptor antibody was not able to be done due to lack of cerebrospinal fluid; however, she is at low suspect for having this entity. I have discussed these results thoroughly with the patient's daughter and that she is aware that overwhelmingly the alcohol is likely to be causative. The patient needs ongoing protection that her likelihood of making full of recovery to lead an independent living is in grave question. LABORATORY DATA: Done most recently on 09/03/2019, CBC done, which was grossly normal. Chemistries were done also, on 09/03/2019 which were equally grossly normal. Cortisol sample done on 08/30/2019 was 17.3. Free T4 was slightly high at 2.3 done on 08/30/2019. PHYSICAL EXAMINATION: VITAL SIGNS: On the day of discharge are as follows: Temperature 37.2, pulse 78, respirations 16, BP 97/79, O2 sat 99%. MUSCULOSKELETAL: Largely normal gait and station, but conferred. MENTAL STATUS EXAMINATION: This is a well-developed, fairly nourished female appearing only stated age. Attention limited. Concentration limited. Speech is normal in rate, volume and tone. Thought process linear and limited. Thought content focused on discharge. Denied cravings. No psychomotor agitation. No psychomotor retardation. Mood and affect congruent and euthymic, fair range. Insight limited. Judgment limited. Fund of knowledge below average at this point. Prognosis for this patient is quite guarded given the extreme complications fo Alcoholism that has manifested over the last 5 weeks with this patient. <ELECTRONICALLY SIGNED> By: Curtis Anderson DO 09/04/192249 [id number] Curtis Anderson DO /nt
== END 2019-09-04 11:42 | DRG 884 ==
LOC: SBH 15:19
PROVIDERS: Hospitalist; ADMIT Psychiatry & Neurology Psychiatry
DX: F01.51 Vascular dementia, unspecified severity, with behavioral disturbance (principal); E43 Unspecified severe protein-calorie malnutrition; F10.259 Alcohol dependence with alcohol-induced psychotic disorder, unspecified; R65.10 Systemic inflammatory response syndrome (SIRS) of non-infectious origin without acute organ dysfunction; E03.9 Hypothyroidism, unspecified; E06.3 Autoimmune thyroiditis; E07.81 Sick-euthyroid syndrome; I95.9 Hypotension, unspecified; I10 Essential (primary) hypertension; E55.9 Vitamin D deficiency, unspecified; Z68.21 Body mass index [BMI] 21.0-21.9, adult; Z79.899 Other long term (current) drug therapy; Z88.6 Allergy status to analgesic agent; Z88.5 Allergy status to narcotic agent; Z88.8 Allergy status to other drugs, medicaments and biological substances; Z87.440 Personal history of urinary (tract) infections
CPT/HCPCS: 10880